=== PATIENT | female | born 1975 | race Caucasian/White ===

== ENCOUNTER 2023-12-21 12:42 | Outpatient (REF) | payer MEDICAID, OTHER, SELFPAY ==
--- NOTE | ~2023-12-21 | US_ITS ---
EXAMINATION: MM DIAGNOSTIC DIGITAL BREAST TOMOSYNTHESIS, BILATERAL US BREAST LIMITED, RIGHT MAMMOGRAPHY: CLINICAL INFORMATION: 48-year-old female, from [place], new baseline exam, complaining of palpable abnormality and pain right breast lateral upper and lower quadrants. Family history of breast cancer. Bilateral screening, COMPARISON: Mammography: [facility] in [place]. No current available. New baseline. TECHNIQUE: Digital breast tomosynthesis is performed in both the craniocaudal and mediolateral oblique views along with computer-aided detection (CAD). Synthesized 2D images are generated from the tomosynthesis. In addition, a full-field right 3-D mediolateral view, and full-field 3-D laterally exaggerated CC view were also obtained. FINDINGS: The breasts are heterogeneously dense, which may obscure small masses (ACR BI-RADS breast composition Category c). There are no suspicious masses, suspicious grouped calcifications, or areas of architectural distortion in either breast. No mammographic abnormality is detected in the lateral right breast upper quadrant or lower quadrant to correlate with the patient's palpable abnormality and breast pain. ULTRASOUND: CLINICAL INFORMATION: As above. COMPARISON: None TECHNIQUE: Targeted sonographic evaluation was performed using a high frequency linear transducer. Attention to the right lateral breast was given. Selected archived documentation. FINDINGS: RIGHT BREAST: There is heterogeneously dense breast tissue present. There is no mass, cystic abnormality, abnormal shadowing, or parenchymal distortion identified. No sonographic correlate to the patient's symptomatology is evident in the lateral right breast upper outer lower quadrant. US/US breast RT limited mamm only IMPRESSION: There are no findings suspicious for malignancy in either breast. There is no correlate mammographically or sonographically to the patient's complaint of lateral upper and lower quadrant pain and palpable concern. Recommend clinical management. Otherwise, recommend the patient resume routine annual screening. OVERALL ASSESSMENT: Mammography: BI-RADS 1 - Negative Ultrasound: BI-RADS 1 - Negative RECOMMENDATION: 1. Patient should be managed based on the clinical impression. 2. Otherwise, routine annual screening mammography. Results were provided to the patient at time of visit by the technologist. This patient's information was entered into a reminder system with a target due date for their next mammogram.
== END 2023-12-21 12:43 | disposition home or self-care (01) ==
LOC: HO.MAMMO 12:42
PROVIDERS: PCP Registered Nurse; Visit Provider Registered Nurse
DX: N63.13 Unspecified lump in the right breast, lower outer quadrant (principal)
CPT/HCPCS: 76642; 77062; 77066

== ENCOUNTER → 2023-12-21 13:30 | Outpatient (BNV) | payer SELFPAY | PROVIDERS: PCP Registered Nurse; Visit Provider Radiology Diagnostic Radiology | DX: N64.4 Mastodynia (principal); N63.10 Unspecified lump in the right breast, unspecified quadrant | CPT/HCPCS: 76642; 77062; 77066 ==

== ENCOUNTER 2024-01-07 12:08 | Outpatient (REF) | payer MEDICAID, OTHER, SELFPAY ==
[2024-01-07 13:11] LABS: MANUAL DIFF FLAG NO
[2024-01-07 13:18] LABS: Basophils Percent Auto 0.7 % (0-2); Eosinophils Absolute Auto 0.1 X10*3/uL (0.0-0.4); Eosinophils Percent Auto 0.9 % (0-4); Hematocrit 37.7 % (37.0-47.0); Hemoglobin 12.7 g/dl (12.0-16.0); Imm Gran Abs Auto 0.02 X10*3/uL (0.00-0.03); Imm Gran Pct Auto 0.3 % (0.0-0.4); Lymphocytes Absolute Auto 1.1 X10*3/uL (1.2-4.9); Lymphocytes Percent Auto 19.9 % (20-40); Mean Corpuscular HGB Conc 33.7 g/dl (31.0-35.0); Mean Corpuscular Hemoglobin 31.1 pg (27.0-33.0); Mean Corpuscular Volume 92.2 fL (80.0-98.0); Mean Platelet Volume 10.7 fL (9.4-12.3); Monocytes Absolute Auto 0.3 X10*3/uL (0.1-1.2); Monocytes Percent Auto 5.2 % (2-11); Neutrophils Absolute Auto 4.2 x10*3/uL (2.0-8.3); Platelet Count 245 X10*3/uL (160-400); Red Blood Count 4.09 X10*6/uL (4.20-5.50); Red Cell Distribution Width 12.4 % (11.0-16.0); White Blood Count 5.7 X10*3/uL (4.8-10.8)
[2024-01-07 13:39] LABS: Alanine Aminotransferase 27 U/L (0-31); Albumin Level 4.5 g/dL (3.5-5.0); Alkaline Phosphatase 71 U/L (39-117); Anion Gap 16 (12-20); Aspartate Amino Transferase 22 U/L (5-31); Bilirubin Total 0.5 mg/dL (0.0-1.0); Blood Urea Nitrogen 16 mg/dL (9-16); Calcium 10.1 mg/dL (8.4-10.2); Carbon Dioxide 23 mmol/L (22-29); Chloride 106 mmol/L (96-108); Cholesterol 270 mg/dL (<200); Estimated Glomerular Filt Rate > 60; Glucose Random 102 mg/dL (60-115); HDL Cholesterol 54 mg/dL (>40); LDL Cholesterol Calculated 190 mg/dL (<100); Potassium 4.4 mmol/L (3.3-5.1); Sodium 141 mmol/L (135-145); Triglycerides 130 mg/dL (<150)
[2024-01-08 07:51] LABS: HBS Num1 0.33 mIU/mL (0-7.99); HBc Num1 0.11 S/CO (0.00-0.79); HBsAGNum1 0.23 S/CO (0.00-0.99); HIV AB/AG Nonreactive (Nonreactive); HIV Num 1 0.05 S/CO (0.00-0.99); Hepatitis A Antibody IgM 0.71 Index (0-0.79); Hepatitis B Core Antibody Nonreactive (Nonreactive); Hepatitis B Surface Antigen Negative (Negative); ~HepC Num1 0.11 S/CO (0.00-0.79); ~Hepatitis A Antibody IgM Nonreactive (Nonreactive); ~Hepatitis B Surface Antibody NONREACTIVE (Nonreactive); ~Hepatitis C Antibody Nonreactive (Nonreactive)
[2024-01-09 20:03] LABS: RPR Rapid Plasma Reagin NON-REACTIVE (NON-REACTIVE)
== END 2024-01-07 12:09 | disposition home or self-care (01) ==
LOC: HO.HHCL 12:08
PROVIDERS: Visit Provider Registered Nurse
DX: Z00.00 Encounter for general adult medical examination without abnormal findings (principal)
CPT/HCPCS: 36415; 80053; 80061; 85025; 86592; 86704; 86706; 86709; 86803; 87340; 87389

== ENCOUNTER 2024-01-10 15:31 | Outpatient (REF) | payer MEDICAID, OTHER, SELFPAY ==
--- NOTE | ~2024-01-10 | US_ITS ---
EXAMINATION: US PELVIS CLINICAL INFORMATION: Right lower quadrant pain, postmenopausal. COMPARISON: None available. TECHNIQUE: Ultrasound of the pelvis is performed using both transabdominal and transvaginal transducers along with Doppler. Transvaginal imaging is performed due to inadequate visualization transabdominally. FINDINGS: The uterus measures 6.2 x 3.3 x 3.5 cm and is anteverted. Endometrium is echogenic with thickness of 6 mm. There is an anechoic area within the endometrium measuring approximately 7 x 2 mm. No significant free fluid. Bilateral ovaries are grossly unremarkable, although visualization is limited. Right ovary measures 3.6 x 3.2 x 1.9 cm, volume 11.4 mL. Left ovary measures 2.3 x 1.7 x 1.9 cm volume 3.9 mL and was seen only on transabdominal ultrasound images. Limited visualization due to bowel gas. US/US pelvic and transvaginal IMPRESSION: Endometrium is echogenic with thickness of 6 mm. There is an anechoic area within the endometrium measuring approximately 7 x 2 mm. Abnormal appearance of endometrium for postmenopausal patient. Gynecologic consultation recommended to determine further management including possible biopsy.
== END 2024-01-10 15:32 | disposition home or self-care (01) ==
LOC: HO.HMGCX 15:31
PROVIDERS: PCP Registered Nurse; Visit Provider Registered Nurse
DX: R10.2 Pelvic and perineal pain (principal)
CPT/HCPCS: 76830; 76856

== ENCOUNTER 2024-03-21 17:12 | Outpatient (REF) | payer MEDICAID, OTHER, SELFPAY ==
[2024-03-22 13:32] LABS: CT PCR NOT DETECTED (Not Detect.); NG PCR NOT DETECTED (Not Detect.)
[2024-03-26 08:53] LABS: HPV mRNA E6/E7 Not Detected (Not Detected)
== END 2024-03-21 17:13 | disposition home or self-care (01) ==
LOC: HO.HHCLNP 17:12
PROVIDERS: Visit Provider Registered Nurse
DX: Z12.4 Encounter for screening for malignant neoplasm of cervix (principal)
CPT/HCPCS: 36415; 87491; 87591; 87624; 88175

== ENCOUNTER 2024-06-23 14:36 | Outpatient (REF) | payer MEDICAID, OTHER, SELFPAY ==
[2024-06-23 15:59] LABS: MANUAL DIFF FLAG NO
[2024-06-23 16:04] LABS: Basophils Percent Auto 0.4 % (0-2); Eosinophils Percent Auto 0.8 % (0-4); Hematocrit 36.8 % (37.0-47.0); Hemoglobin 12.5 g/dl (12.0-16.0); Imm Gran Abs Auto 0.01 X10*3/uL (0.00-0.03); Imm Gran Pct Auto 0.2 % (0.0-0.4); Lymphocytes Absolute Auto 1.3 X10*3/uL (1.2-4.9); Lymphocytes Percent Auto 24.9 % (20-40); Mean Corpuscular Hemoglobin 30.5 pg (27.0-33.0); Mean Corpuscular Volume 89.8 fL (80.0-98.0); Mean Platelet Volume 10.5 fL (9.4-12.3); Monocytes Absolute Auto 0.3 X10*3/uL (0.1-1.2); Monocytes Percent Auto 5.8 % (2-11); Neutrophils Absolute Auto 3.5 x10*3/uL (2.0-8.3); Neutrophils Percent Auto 67.9 % (45-73); Platelet Count 254 X10*3/uL (160-400); Red Cell Distribution Width 12.3 % (11.0-16.0); White Blood Count 5.2 X10*3/uL (4.8-10.8)
[2024-06-23 17:01] LABS: Ferritin 100 ng/mL (10-250); TSH reflex Free T4 3.15 uIU/mL (0.32-4.0)
== END 2024-06-23 14:37 | disposition home or self-care (01) ==
LOC: HO.HHCL 14:36
PROVIDERS: Visit Provider Registered Nurse
DX: R53.83 Other fatigue (principal)
CPT/HCPCS: 36415; 82728; 84443; 85025

== ENCOUNTER 2025-01-06 10:33 | Outpatient (REF) | payer MEDICAID, OTHER, SELFPAY ==
--- OUTSIDE RECORDS SUMMARY | 2025-01-06 12:21 | XMS_ITS | Patient Health Record ---
Author Organization [facility] Address [address], [place] [id number] Care Team Providers Care Block Tester Name Role Phone No, PCP Primary Care Provider Unavailabl e Allergies No Known Allergies Reason For Referral No Information Plan Of Treatment No Information Insurance Providers Payer Name Payer Address Payer Phone Subscriber Number Group Number Insured Name Patient Relationship to Insured Coverage Start Date Coverage End Date [place] [address] [place], [place] [id number] [phone] [id number] Servando Torres Self - patient is the insured 9 [place] [employer] [facility] [address] [place] [address] [id number] Servando Torres Self - patient is the insured 9 Health [employer] [facility] [address] [place] [address] [id number] Servando Torres Self - patient is the insured 9 Medical (General) History Medical History History ICD Code Healthy
== END 2025-01-06 10:34 | disposition home or self-care (01) ==
LOC: HO.MAMMO 10:33
PROVIDERS: Visit Provider Registered Nurse
DX: Z12.31 Encounter for screening mammogram for malignant neoplasm of breast (principal)
CPT/HCPCS: 77063; 77067

== ENCOUNTER → 2025-01-06 10:45 | Outpatient (BNV) | payer SELFPAY | PROVIDERS: Visit Provider Internal Medicine | DX: Z12.31 Encounter for screening mammogram for malignant neoplasm of breast (principal) | CPT/HCPCS: 77063; 77067 ==

== ENCOUNTER 2025-05-25 11:19 | Outpatient (REF) | payer MEDICAID, OTHER, SELFPAY ==
--- NOTE | ~2025-05-25 | XR_ITS ---
EXAMINATION: XR LUMBOSACRAL SPINE WITH OBLIQUES CLINICAL INFORMATION: Acute on chronic sharp low back pain COMPARISON: None available. TECHNIQUE: AP oblique and lateral views FINDINGS: No acute cortical disruption or gross malalignment. No lytic or blastic lesions. Small marginal osteophyte formation at multiple levels from L2-3 to L4-5. Vascular complications, aorta. XR/XR lumbar spine 4V min IMPRESSION: Mild multilevel spondylosis. Electronically signed by: Kerwin Osborne MD 05/25/2025 12:53 PM EDT
--- OUTSIDE RECORDS SUMMARY | 2025-05-25 10:00 | XMS_ITS | Encounter Summary ---
Author Organization [employer] Address [address] [place] [address] [address] [place] [address] Care Team Providers Care Condenser Tester Name Role Phone Samantha Owusu Primary Care Provider [phone] Reason for Referral * Imaging (STAT) - Authorized Specialty Diagnoses / Procedures Referred By Contac t Referred To Contact Radiology Diagnoses Post-menopausal bleeding Procedures US Pelvis Transvaginal Samantha Owusu FNP [address] [place] [address] Phone: tel: fax: [address] Phone: tel: fax: Referral ID Status Reason Start Date Expiration Date V isits Requested Visits Authorized [id number] Authorized 05/25/2025 05/25/2026 1 1 * Imaging (STAT) - Authorized Specialty Diagnoses / Procedures Referred By Contac t Referred To Contact Radiology Diagnoses Post-menopausal bleeding Procedures Us Pelvis complete Samantha Owusu FNP [address] [place] [address] Phone: tel: fax: [address] Phone: tel: fax: Referral ID Status Reason Start Date Expiration Date V isits Requested Visits Authorized [id number] Authorized 05/25/2025 05/25/2026 1 1 Reason for Visit * Reason Comments Annual Exam Encounter Details Date Type Department Care Team (Chris st Contact Info) Description 05/25/2025 10:00 AM EDT Office Visit [facility] [address] [place] [address] Samantha Owusu FNP [address] [place] [address] Healthcare maintenance (Primary Dx); Post-menopausal bleeding; Elevated blood pressure reading in office without diagnosis of hypertension; Chronic bilateral low back pain with right-sided sciatica; Dietary counseling; Exercise counseling Social History Tobacco Use Types Packs/Day Years Used Date Smoking Tobacco: Never Passive Smoke Exposure: Never Smokeless Tobacco: Never Tobacco Cessation:Counseling Given: Not Answered Alcohol Use Standard Drinks/Week Comments Never 0 (1 standard drink = 0.6 oz pur e alcohol) Depression Answer Date Recorded Patient Health Questionnaire-9 Score 0 05/25/2025 Patient Health Questionnaire-9 Score 0 05/25/2025 Last PHQ-9: Questionnaire Data Not on file 1 Housing Stability Answer Date Recorded What is your housing situation today? I have tarik high 05/25/[address] you li ve. Do you have problems with any of the following? None of the above 05/25/2025 Food Insecurity Answer Date Recorded Within the past 12 months, y ou worried that your food would run out before you got money to buy more: Never True 05/25/2025 Within the past 12 months,th e food you bought just didn't last and you didn't have enough money to get more: Never True Transportation Answer Date Recorded In the past 12 months, has l ack of transportation kept you from medical appts, meetings, work or from getting things needed for daily living? No 05/25/2025 Utilities Answer Date Recorded In the past 12 months, has t he electric, gas, oil or water company threatened to shut off services in your home? No 05/25/2025 Depression Answer Date Recorded Patient Health Questionnaire-2 Score 0 05/25/2025 Internet Access Answer Date Recorded Internet Access Q1 Yes 05/25/2025 Internet Access Q2 Not on file 05/25/2025 Comments Unknown Sex and Gender Information Value Date Recorded Sex Assigned at Female 05/29/2022 10:39 AM EDT Legal Sex Female 10:39 AM EDT Gender Identity Female 05/29/2022 10:39 AM EDT Sexual Orientation Don't know 05/29/2022 10 :39 AM EDT documented as of this encounter Last Filed Vital Signs Vital Sign Reading Time Taken Comments Blood Pressure 130/100 05/25/2025 11:01 AM EDT Pulse 90 05/25/2025 10:17 AM EDT Temperature 36.2 C (97.1 F) 05/25/2025 10:17 AM EDT Respiratory Rate 18 05/25/2025 10:17 AM EDT Oxygen Saturation - - Inhaled Oxygen Concentration - - Weight 61.9 kg (136 lb 6.4 oz) 05/25/2025 10:17 AM EDT Height 154.9 cm (5' 1 ) 05/25/2025 10:17 AM EDT Body Mass Index 25.77 05/25/2025 10:17 AM EDT documented in this encounter Functional Status * Over the past 2 weeks, how often have you been bothered by any of the following problems? Question Answer Date of Assessment Author Little interest or pleasure in doing things Not at all 05/25/2025 11:16 AM EDT Vy Petty MA Feeling down, depressed, or hopeless Not at all 05/25/2025 11:16 AM EDT Vy Valentin MA Patient Health Questionnaire-2 Score 0 05/25/2025 11:16 AM EDT Vy Reilly MA * Question Answer Date of Assessment Author Trouble falling or staying asleep, or sleeping too much Not at all 05/25/2025 11:16 AM EDT Vy Ramirez MA Feeling tired or having little energy Not at all 05/25/2025 11:16 AM EDT Vy Valentin MA Poor appetite or overeating Not at all 05/25/2025 11 :16 AM EDT Vy Valentin MA Feeling bad about yourself - or that you are a failure or have let yourself or your family down Not at all 05/25/2025 11:16 AM Vy Lei MA Trouble concentrating on things, such as reading the newspaper or watching television Not at all 05/25/2025 11:16 AM Vy Lei MA Moving or speaking so slowly that other people could have noticed? Or the opposite - being so fidgety or restless that you have been moving around a lot more than usual. Not at all 05/25/2025 11:16 AM EDT Vy Poe MA Thoughts that you would be better off or hurting yourself in some way Not at all 05/25/2025 11:16 AM Vy Lei MA Patient Health Questionnaire-9 Score 0 05/25/2025 11:16 AM Vy Barkley MA * Over the last 2 weeks, how often have you been bothered by any of the following problems? Question Answer Date of Assessment Author Feeling nervous, anxious, or on edge 0 05/25/2025 11:16 AM Vy Lei MA Not being able to stop or control worrying 0 05/25/2025 11:16 AM Vy Lei MA Worrying too much about different things 0 05/25/2025 11:16 AM Vy Lei MA Trouble relaxing 0 05/25/2025 11:16 AM Vy Lei MA Being so restless that it is hard to sit still 0 05/25/2025 11:16 AM Vy Lei MA Becoming easily annoyed or irritable 0 05/25/2025 11:16 AM Vy Lei MA Feeling afraid as if something awful might happen 0 05/25/2025 11:16 AM Vy Pritchard MA CECELIA-7 Total Score 0 05/25/2025 11:16 AM EDT Vy Valentin MA documented as of this encounter Progress Notes * [facility], BILLING ANALYST - 05/25/2025 10:00 AM EDT SUBJECTIVE: Servando Bradley is a 49 y.o. year old female who presents for routine physical exam.Denies recent illness, injury, or hospitalization. [employer] Aide: [id number] Acute Concerns: Elevated Blood Pressure-->Pt denies CP/SOB/headache/blurred vision. + Family history of hypertension. Chronic low back pain -- reports sharp, stabbing pain, bilateral low back pain x several years. Radiating down back of right legt. No dysuria, no fever, chills. Worse with prolonged standing and extension. No history of trauma. Needs referral for eye care--> Interval History OBGYN-Referred to [facility] for pelvic pain in setting of abnormal pelvic ultrasound. Has not scheduled appointment. --has been unable to receive a call back--> reports 1 episode of spotting within thelast 3 months. Endometrium is echogenic with thickness of 6 mm. There is an anechoic area within the endometriummeasuring approximately 7 x 2 mm. Abnormal appearance of endometrium for postmenopausal patient. Gynecologic consultation recommended to determine further management including possible biopsy. Social History Social History Narrative Current living environment: Lives with partner/kids Children: 2--> adult Employment/Education: Cleaning Tobacco Use: None Alcohol Use: None Marijuana Use: None Other drug use: None Reproductive Health: Sexually Active: Yes Partners are: AMAB LMP: Menopause Planning a in the next 12 months: No Problem List[1] Surgical History[2] Family History[3] Review of Systems OBJECTIVE: There were no vitals filed for this visit. Physical Exam ASSESSMENT/PLAN PMB - STAT repeat pelvic ultrasound - GASKET WINDER options limited due to insurance-->will task RN team to call office directly - Emphasized importance of follow through Elevated BP Home blood pressure cuff sent to pharmacy. Record blood pressure 1-2x/day at varying times of day Contact health center if three readings are >140/90. Seek immediate medical care if reading is greater than or equal to 180/120 or if experiencing chestpain, blurred vision or severe headache Follow up with nurse blood pressure visit in 2 weeks-->if home readings consistently >130/80 please schedule patient for televisit with me to discuss starting pharmacologic treatment. Thank you! Patient verbalizes understanding and agrees to plan. Chronic LBP - Sx likely musculoskeletal. Non-focal, normal motor exam without neurological deficits. -Recommend NSAID and tylenol PRN - Baseline xrays given age - Accepts physical therapy referral; pending insurance -Lifting precautions and stretching reviewed. -ER precaution discussed. -Contact HC if no sx improvement with conservative tx PHYSICAL - Cardiopulmonary exam WNL - Encouraged regular aerobic exercise with initial goal of 30 minute walk 3x/week gradually increasing to 150 min/week of moderate intensity exercise - Encouraged balanced diet with a variety of fruits, vegetables, and lean meats. Recommended to decrease soda and sugary beverage consumption. Routine Health Maintenance Optometry: Referral to eye care placed Dental: Established with dental provider. Up to date on routine care Adult IZ: Declines Immunization History Administered Date(s) Administered Influenza, seasonal, injectable, preservative free 06/23/2024 Pfizer Covid-19 Vaccine 12+ 11/27/2020, 12/18/2020 Tdap 01/07/2024 Mental health screening with validated assessment tool : Negative Screenings Breast cancer screenin12/2024 negative Cervical cancer screenin02/2024-NIL HPV neg Colorectal cancer screening: Colog2023 negative Bone mineral density: Routine age 63. Lung CA: N/A Mental health screen: negative Diagnosis Plan 1. Healthcare maintenance 2. Post-menopausal bleeding Us Pelvis complete US Pelvis Transvaginal Us Pelvis complete US Pelvis Transvaginal 3. Elevated blood pressure reading in office without diagnosis of hypertension Comprehensive Metabolic Panel Albumin, Random Urine W/Creatinine Blood Pressure kit Comprehensive Metabolic Panel Albumin, Random Urine W/Creatinine Lipid Panel, Standard Lipid Panel, Standard 4. Chronic bilateral low back pain with right-sided sciatica XR Lumbar Spine Complete 4+ Views XR Lumbar Spine Complete 4+ Views 5. Dietary counseling 6. Exercise counseling Follow Up: 2 weeks RN BP check; Medications Ordered Prior to Encounter[4] [1] There is no problem list on file for this patient. [2] No past surgical history on file. [3] Family History Problem Relation Name Age of Onset Breast cancer Mother Stroke Mother Diabetes type II Mother [4] No current outpatient medications on file prior to visit. No current facility-administered medications on file prior to visit. documented in this encounter Miscellaneous Notes * Patient Education Note - Samantha PritchettMAVIS laurent - 05/25/2025 3:01 PM EDT Images from the original note were not included. Patient Education Table of Contents Exerc?cios para as khalida: fortalecimento (Back Exercises: Strengthening) To view videos and all your education online visit, [email or web address] or scan this QR code with your smartphone. Access to this content will in one year. Exerc?cios para as khalida: fortalecimento Back Exercises: Strengthening Introdu???o Os exerc?cios para as khalida podem ajudar voc?? a melhorar ap?s soren les?o ou fortalecer os m?sculosfracos. Esses exerc?cios ajudam a fortalecer o tronco (torso) e as khalida. Eles tamb?m ajudam a manter a shayna?o lombar flex?naeem. A pr?lotus desses exerc?cios pode ajudar a prevenir ou diminuir a cathy na shayna?olombar. Jodi sinta cathy connor khalida, tente fazer esses exerc?cios 2 a 3 vezes por marco ou de acordo com as instru???es do seu m?dico. ?? medida que voc?? melhorar, fa?a os exerc?cios soren vez por marco. Repita os exerc?cios com mais frequ?ncia, conforme indicado pelo seu m?dico. Para evitar que a cathy connor khalida volte, fa?a os exerc?cios soren vez por marco ou conforme indicado pelo seu m?dico. Pare se sentir cathy ou se a cathy piorar. N?o comece os exerc?cios rashard a aprova???o do seu m?dico. Exerc?cios [place]???o do joelho Repita essas etapas 3 a 5 vezes com cada leonie: 1. Deite-se de khalida em soren cama firme ou no ch?o com as pernas esticadas. Leve um joelho ao peito. Segure o joelho ou a coxa com as duas m?os e mantenha-o dinorah posi???o. Puxe o joelho at?? sentir um alongamento suave da shayna?o lombar e nos gl?teos. Permane?a dinorah posi???o por 10 a 30 segundos. Lentamente, solte a leonie e endireite-a. Inclina???o da pelve Repita esses brenda 5 a 10 vezes: 1. Deite-se de khalida em soren cama firme ou no ch?o com as pernas esticadas. Dobre os joelhos de modo que eles apontem para o tashi. Seus p?s devem estar apoiados no ch?o. Contraia os m?sculos da parte inferior da rosendo (abd?men) para pressionar a parte inferior jung khalida contra o ch?o. Isso far?? com que o c?ccix wagner para o tashi em vez de apontar para os p?s ou para o ch?o. Permane?a dinorah posi???o por 5 a 10 segundos enquanto contrai suavemente os m?sculos e respire de modo meghana. Alongamento do anjelica e da peter Execute estas etapas at?? que a shayna?o lombar se curve com mais facilidade: 1. Ajoelhe-se em soren cama firme ou no ch?o. Mantenha as m?os abaixo dos ombros e os joelhos abaixo dos quadris. Voc?? pode colocar soren almofada sob os joelhos. Solte a cabe?a e deixe-a pendurada na dire???o do seu peito. Aperte (contraia) os m?sculos de sua rosendo. Wagner o c?ccix para o ch?o, de maneira que a shayna?o lombar fique arredondada, jered as khalida de um anjelica. Permane?a dinorah posi???o por 5 segundos. Levante lentamente a cabe?a. Deixe os m?sculos do abd?men relaxarem. Wagner o c?ccix na dire???o doteto, de maneira que a shayna?o lombar forme um arco, jered as khalida de soren peter. Permane?a dinorah posi???o por 5 segundos. Flex?es de bra?o Execute estas etapas de 5 a 10 vezes seguidas: 1. Deite-se com o abd?men voltado para baixo (de bru?os) em soren cama firme ou no ch?o. Coloque as m?os perto da cabe?a, aproximadamente na largura dos ombros. Mantendo as khalida t?o relaxadas quanto poss?naeem e os quadris no ch?o, estique os bra?os de maneiraa erguer a parte superior do corpo e os ombros. N?o use os m?sculos jung khalida. Voc?? pode mudar o local onde coloca as m?os para se sentir mais confort?naeem. Permane?a dinorah posi???o por 5 segundos. Mantenha suas khalida relaxadas. Volte lentamente a deitar-se no ch?o. Stella Execute estas etapas 10 vezes seguidas: 1. Deite-se de khalida em soren cama firme ou sobre o ch?o. Dobre os joelhos de modo que eles apontem para o tashi. Seus p?s devem estar apoiados no ch?o. Seus bra?os devem estar estendidos connor laterais, paralelos ao seu corpo. Contraia os gl?teos e levante as n?degas do ch?o at?? que sua cintura esteja quase na altura dos joelhos. Se n?o sentir os m?sculos trabalhando connor n?degas e na parte posterior jung coxas, afaste os p?s de 1 a 2 polegadas (2,5 a 5 cm) dos gl?teos. Permane?a dinorah posi???o por 3 a 5 segundos. Abaixe lentamente as n?degas at?? o ch?o e deixe os gl?teos relaxarem. Se esse exerc?twill cutter for f?cil demais, tente jonah?-lo com os bra?os cruzados sobre o peito. Flex?es abdominais Execute estas etapas de 5 a 10 vezes seguidas: 1. Deite-se de khalida em soren cama firme ou no ch?o com as pernas esticadas. Dobre os joelhos de modo que eles apontem para o tashi. Seus p?s devem estar apoiados no ch?o. Cruze os bra?os sobre o peito. Incline o queixo um pouco em dire???o ao peito, mas n?o dobre o pesco?o. Contraia os m?sculos da rosendo e, lentamente, levante o peito apenas o suficiente para levantar asomoplatas um pouco do ch?o. Evite elevar o corpo mais alto do que isso, pois isso pode causar muitoestresse na shayna?o lombar. Abaixe lentamente o peito e a cabe?a at?? o ch?o. [place]???o jung khalida Execute estas etapas de 5 a 10 vezes seguidas: 1. Deite-se de rosendo para baixo (de bru?os) com os bra?os ao lado do corpo e apoie a dhaval no ch?o. Contraia os m?sculos jung pernas e dos gl?teos. Erga lentamente o peito em rela???o ao ch?o, mantendo os quadris no ch?o. Mantenha a parte de tr?s da cabe?a alinhada com a curva jung khalida. Olhe para o ch?o enquanto jonah isso. Permane?a dinorah posi???o por 3 a 5 segundos. Abaixe lentamente o peito e o rosto at?? o ch?o. Estas informa???es n?o se destinam a substituir as recomenda???es de seu m?dico. N?o deixe de discutir quaisquer d?vidas com seu m?dico. Document Released: 2017-11-06 Document Updated: 2024-12-17 Document Reviewed: 2024-12-17 Elsevier Patient Education ? 2024 CohesiveFTRafia documented in this encounter Plan of Treatment Upcoming Encounters Date Type Department Care Team (Late st Contact Info) Description 06/01/2025 11:30 AM EST Clinical Support [facility] [address] [place] [id number] Scheduled Orders Name Type Priority Associated Diagnoses Orde r Schedule Us Pelvis complete Imaging STAT Post-menopausal bleeding Expected: 05/25/2025, Expires: 05/25/2026 US Pelvis Transvaginal Imaging STAT Post-menopausal bleeding Expected: 05/25/2025, Expires: 05/25/2026 documented as of this encounter Procedures Procedure Name Priority Date/Time Associated Diagnosis Comments XR LUMBAR SPINE COMPLETE 4+ VIEWS Routine 05/25/2025 12:07 PM EDT Chronic bilateral low back pain with right-sided sciatica LIPID PANEL, STANDARD Routine 05/25/2025 11:26 AM EDT Elevated blood pressure reading in office without diagnosis of hypertension COMPREHENSIVE METABOLIC PANEL Routine 05/25/2025 11:26 AM EDT Elevated blood pressure reading in office without diagnosis of hypertension ALBUMIN, RANDOM URINE W/CREATININE Routine 05/25/2025 11:25 AM EDT Elevated blood pressure reading in office without diagnosis of hypertension documented in this encounter Results * XR Lumbar Spine Complete 4+ Views (05/25/2025 12:07 PM EDT) Anatomical Region Laterality Modality Spine, L-spine Radiographic Analia ging 05/25/2025 12:0 7 PM EDT Narrative 05/25/2025 12:56 PM EDT [address] [address] XRay Report Signed Patient: Servando Henriquez MR#: [id number] : 1975 Acct:[id number] Age/Sex: 49 / F ADM Date: 05/25/25 Loc: [facility] Attending Dr: Samantha PEGUEROP Ordering Physician: Samantha Owusu Date of Service: 05/25/25 Procedure(s): XR lumbar spine 4V min Accession Number(s): [id number] cc: Samantha Owusu [facility] Reason for Exam: Acute on chronic sharp low back pain EXAMINATION: XR LUMBOSACRAL SPINE WITH OBLIQUES CLINICAL INFORMATION: Acute on chronic sharp low back pain COMPARISON: None available. TECHNIQUE: AP oblique and lateral views FINDINGS: No acute cortical disruption or gross malalignment. No lytic or blastic lesions. Small marginal osteophyte formation at multiple levels from L2-3 to L4-5. Vascular complications, aorta. XR/XR lumbar spine 4V min IMPRESSION: Mild multilevel spondylosis. Electronically signed by: Kerwin Osborne MD 05/25/2025 12:53 PM EDT RP Dictated By: Kerwin Benitez MD Signed By: <Electronically signed by Kerwin Crowley MD in OV> 05/25/25 1253 DD/ 1207 TD/TT: 05/25/25 1210 [employer]: Procedure Note Donotuseinterpreter, Image - 05/25/[address] [address] XRay Report Signed Patient: Servando Henriquez MR#: [id number] : 1975Acct:[id number] Age/Sex: 49 / FADM Date: 05/25/25 Loc: [facility] Attending Dr: Samantha PEGUEROP Ordering Physician: Samantha Owusu Date of Service: 05/25/25 Procedure(s): XR lumbar spine 4V min Accession Number(s): [id number] [facility] Reason for Exam: Acute on chronic sharp low back pain EXAMINATION: XR LUMBOSACRAL SPINE WITH OBLIQUES CLINICAL INFORMATION: Acute on chronic sharp low back pain COMPARISON: None available. TECHNIQUE: AP oblique and lateral views FINDINGS: No acute cortical disruption or gross malalignment. No lytic or blastic lesions. Small marginal osteophyte formation at multiple levels from L2-3 to L4-5. Vascular complications, aorta. XR/XR lumbar spine 4V min IMPRESSION: Mild multilevel spondylosis. Electronically signed by: Kerwin Osborne MD 05/25/2025 12:53 PM EDT RP Dictated By: Kerwin Benitez MD Signed By: <Electronically signed by Kerwin Crowley MDin OV> 05/25/25 1253 DD/ 1207 TD/TT: 05/25/25 1210 [employer]: [facility] IMG XR PROCEDURES Edited Resu lt - Final * (ABNORMAL) Lipid Panel, Standard (05/25/2025 11:26 AM EDT) Triglycerides 92 <150 mg/dL [facility] Comment:Desirable Triglyceri de: less than 150 mg/dLBorderline High Triglyceride 150-199 mg/dLHigh Triglyceride: 200-499 mg/dLVery High Triglyceride: greater than or equal to 5OO mg/dL Cholesterol 237(H) <200 mg/dL [facility] Comment:Desirable Cholestero l: less than 200 mg/dLBorderline High Cholesterol: 200-239 mg/dLHigh Cholesterol: greater than 239 mg/dL LDL Cholesterol Calculated 166(H) <100 mg/dL [facility] Comment:Desirable LDL: less than 100 mg/dLNear Optimal/Above Optimal LDL: 110- 129 mg/dLBorderline High LDL: 130-159 mg/dLHigh LDL: 160-189 mg/dLVery High LDL: greater than or equal to 190 mg/dL HDL Cholesterol 53 >40 mg/dL [facility] Comment:Desirable HDL: great er than 40 mg/dL Note: This HDL assay may give artificially low results in patients with liver disease. Blood Venous blood specimen / Unknown 05/25/2025 11:26 AM EDT 05/25/2025 1:19 PM EDT [facility] LAB BLOOD ORDERABLES Final Re sult [facility] [address] [place] [phone] * (ABNORMAL) Comprehensive Metabolic Panel (05/25/2025 11:26 AM EDT) Sodium 140 135 - 145 mmol/L [facility] Potassium 4.1 3.3 - 5.1 mmol/L [facility] Chloride 110(H) 96 - 108 mmol/L [facility] Carbon Dioxide 26 22 - 29 mmol/L [facility] Anion Gap 8(L) 12 - 20 [facility] Urea Nitrogen (BUN) 14 9 - 16 mg/dL [facility] Creatinine, Serum 0.59 0.5 - 1.4 mg/dL [facility] Estimated Glomerular Filt Rate >60 [facility] Comment:Chronic Kidney Disea se: Estimated GFR < 60 mL/min/[id number] Kidney Disease: Estimated GFR < 15 mL/min/1.73m2 Glucose 101 60 - 115 mg/dL [facility] Calcium 9.2 8.4 - 10.2 mg/dL [facility] Bilirubin, Total 0.4 0.0 - 1.0 mg/dL [facility] Aspartate Amino Transferase 23 5 - 31 U/L [facility] Alanine Aminotransferase 25 0 - 31 U/L [facility] Total Protein 7.8 6.5 - 8.0 g/dL [facility] Albumin Level 4.6 3.5 - 5.0 g/dL [facility] Alkaline Phosphatase 64 39 - 117 U/L [facility] Blood Venous blood specimen / Unknown 05/25/2025 11:26 AM EDT 05/25/2025 1:19 PM EDT [facility] LAB BLOOD ORDERABLES Final Re sult Performing Organization Address City/[facility]/ZIP Co de Phone Number [facility] [address] [place] [phone] * Albumin, Random Urine W/Creatinine (05/25/2025 11:25 AM EDT) Creatinine, Urine 89.24 mg/dL [facility] Microalbumin Urine 8.0 mg/L [facility] Microalbum Creatinine Ratio Ur 8.9 <30 ug/mg cr [facility] Comment:Albumin/Creatinine R atio Reference Ranges: Normal: < 30 ug/mg creatinine Microalbuminuria: 30 - 300 ug/mg creatinineClinical Albuminuria: > 300 ug/mg creatinine Urine 05/25/2025 11:2 5 AM EDT 05/25/2025 1:00 PM EDT [facility] URINE ORDERABLES Final Re sult Performing Organization Address City/[facility]/ZIP Co de Phone Number [facility] [address] [place] [phone] [phone] documented in this encounter Visit Diagnoses Diagnosis Healthcare maintenance- Primary Post-menopausal bleeding Postmenopausal bleeding Elevated blood pressure reading in office without diagnosis of hypertension Chronic bilateral low back pain with right-sided sciatica Dietary counseling Dietary surveillance and counseling Exercise counseling documented in this encounter Additional Health Concerns Assessment Noted Time PHQ-9 Depression Total Score: 0 05/25/20 11:16 AM EDT documented as of this encounter Care Teams Condenser Tester Relationship Specialty Start Date End Date Samantha OwusuMAVIS [address] [place] [id number] PCP - General Family Medicine 12/14/23 documented as of this encounter
[2025-05-25 13:52] LABS: Alanine Aminotransferase 25 U/L (0-31); Albumin Level 4.6 g/dL (3.5-5.0); Alkaline Phosphatase 64 U/L (39-117); Anion Gap 8 (12-20); Aspartate Amino Transferase 23 U/L (5-31); Blood Urea Nitrogen 14 mg/dL (9-16); Calcium 9.2 mg/dL (8.4-10.2); Carbon Dioxide 26 mmol/L (22-29); Chloride 110 mmol/L (96-108); Cholesterol 237 mg/dL (<200); Estimated Glomerular Filt Rate > 60; HDL Cholesterol 53 mg/dL (>40); Potassium 4.1 mmol/L (3.3-5.1); Sodium 140 mmol/L (135-145); Total Protein 7.8 g/dL (6.5-8.0); Triglycerides 92 mg/dL (<150)
[2025-05-25 13:55] LABS: Microalbum/Creatinine Ratio Ur 8.9 ug/mg cr (<30)
--- OUTSIDE RECORDS SUMMARY | 2025-05-25 14:29 | XMS_ITS | Encounter Summary ---
Author Organization [employer] Address [address] [place] [address] [address] [place] [address] Care Team Providers Care Double Cut Off Saw Operator Name Role Phone Samantha Owusu Primary Care Provider [phone] Reason for Referral * Consultation (STAT) - Pending Review Specialty Diagnoses / Procedures Referred By Jose Alfredo t Referred To Contact Obstetrics and Gynecology Diagnoses Post-menopausal bleeding Abnormal pelvic ultrasound Samantha Owusu FNP [address] [place] [address] Phone: tel: fax: Referral ID Status Reason Start Date Expiration Date Visits Requested Visits Authorized [id number] Pending Review Specialty Services Required 05/25/2026 1 1 Encounter Details Date Type Department Care Team (Late st Contact Info) Description 05/25/2025 Orders Only [facility] [address] [place], [place] [phone] Samantha Owusu FNP [address], [place] [phone] Post-menopausal bleeding (Primary Dx); Abnormal pelvic ultrasound Social History Tobacco Use Types Packs/Day Years Used Date Smoking Tobacco: Never Passive Smoke Exposure: Never Smokeless Tobacco: Never Alcohol Use Standard Drinks/Week Comments Never 0 [...] AM EDT documented as of this encounter Functional Status * Over the [...] energy Not at all 05/25/2025 11:16 AM Vy Lei MA Poor appetite or overeating Not at all 05/25/2025 11 :16 AM Vy Lei MA Feeling bad about yourself - or [...] annoyed or irritable 0 05/25/2025 11:16 AM EDT Vy Valentin MA Feeling afraid as if something awful might happen 0 05/25/2025 11:16 AM EDT Vy Ramirez MA CECELIA-7 Total Score 0 05/25/2025 11:16 AM EDT Vy Valentin [place] documented as of this encounter Plan of Treatment Upcoming Encounters Date Type Department Care Team (Late st Contact Info) Description 06/01/2025 11:30 AM EST Clinical Support [facility] [address] [facility] [place] [address] Scheduled Referrals Name Type Priority Associated Diagnoses Order Schedule Referral to Obstetrics / Gynecology Outpatient Referral STAT Post-menopausal bleeding Abnormal pelvic ultrasound Expected: 05/25/2025 (Approximate), Expires: 05/25/2026 documented as of this encounter Visit Diagnoses Diagnosis Post-menopausal bleeding- Primary Postmenopausal bleeding Abnormal pelvic ultrasound documented in this encounter Additional Health Concerns Assessment Noted Time PHQ-9 Depression Total Score: 0 05/25/20 25 11:16 AM EDT documented as of this encounter Care Teams Double Cut Off Saw Operator Relationship Specialty Start Date End Date Samantha Owusu FNP [address] [facility] [place] [address] PCP - General Family Medicine 12/14/23 documented as of this encounter
--- OUTSIDE RECORDS SUMMARY | 2025-05-25 14:29 | XMS_ITS | Clinical Summary ---
Author Organization [employer] Address [address] [place] [address] [address] [place] [address] Care Team Providers Care Energy Scheduler Name Role Phone Samantha Owusu Primary Care Provider [phone] Allergies No known active allergies Medications Blood Pressure kitIndications:El evated blood pressure reading in office without diagnosis of hypertension Use as directed 1 kit Active Active Problems No known active problems Encounters Date Type Department Care Team Description 05/25/2025 10:00 AM EDT Office Visit [facility] [address] [place] [phone] Samantha Owusu FNP Healthcare maintenance (Primary Dx); Post-menopausal bleeding; Elevated blood pressure reading in office without diagnosis of hypertension; Chronic bilateral low back pain with right-sided sciatica; Dietary counseling; Exercise counseling 05/25/2025 Orders Only [facility] [address] [place] [phone] Samantha Owusu FNP Post-menopausal bleeding (Primary Dx); Abnormal pelvic ultrasound 05/25/2025 Travel 05/22/2025 Telephone [facility] [address] [place] [phone] Samantha Owusu FNP chart prep 05/18/2025 Patient Outreach [facility] [address] [place] [address] Samantha Owusu FNP Pre-visit Planning (SDOH unable to reach LVM) 05/18/2025 Patient Outreach [facility] [address] [place] [address] [facility] 03/04/2025 Telephone [facility] [address] [place] [address] [facility] oct recall from Last 3 Months Immunizations Immunization Administration Dates Next Due Influenza, seasonal, injectable, preservative fr ee 06/23/2024 Tdap 01/07/2024 Family History Medical History Relation Name Comments Breast cancer Mother Diabetes type II Mother Stroke Mother Relation Name Status Comments Mother Social History Tobacco Use Types Packs/Day Years [...] Don't know 05/29/2022 10 :39 AM EDT Last Filed Vital Signs Vital Sign Reading Time Taken Comments Blood Pressure 130/100 05/25/2025 11:01 AM EDT Pulse 90 05/25/2025 10:17 AM EDT Temperature 36.2 C (97.1 F) 05/25/2025 10:17 AM EDT Respiratory Rate 18 05/25/2025 10:17 AM EDT Oxygen Saturation 99% 06/23/2024 12:57 PM EST Inhaled Oxygen Concentration - - Weight 61.9 kg (136 lb 6.4 oz) 05/25/2025 10:17 AM EDT Height 154.9 cm (5' 1 ) 05/25/2025 10:17 AM EDT Body Mass Index 25.77 05/25/2025 10:17 AM EDT Plan of Treatment Upcoming Encounters Date Type Department Care Team (Late st Contact Info) Description 06/01/2025 11:30 AM EST Clinical Support [address] [address] Health Maintenance Due Date Last Done Comments CT Colonography 1973 Colonoscopy 1973 FIT 1973 Sigmoidoscopy 1973 Family Planning (PISQ) 1988 Hepatitis B Vaccines (1 of 3 - 19+ 3-dose series) 1992 Pneumococcal Vaccine: 50+ Years (1 of 1 - PCV) 11/04/2023 Zoster Vaccines (1 of 2) 11/04/2023 FOBT 02/04/2025 02/05/2024 COVID-19 Vaccine (3 - 2024-2 6 season) 2025 12/18/2020, 11/27/2020 Influenza Vaccine (#1) 2025 , 05/07/2020 Alcohol/Substance Use Screening 05/25/2026 05/25/2025 Depression Screening 05/25/2026 05/25/2025, 05/25/2025 Disability Screening 05/25/2026 05/25/2025 SDOH Screening 05/25/2026 05/25/2025 Tobacco Screening 05/25/2026 05/25/2025 Mammogram 01/06/2027 01/06/2025, 12/21/2023, 12/21/2023 Colorectal Cancer Screening 02/04/2027 FIT DNA/Cologuard 02/04/2027 02/05/2024 Pap Smear 03/21/2027 03/21/2024 Cervical Cancer Screening 03/21/2029 HPV/Cotest 03/21/2029 03/21/2024 DTaP/Tdap/Td Vaccines (2 - T d or Tdap) 01/06/2034 01/07/2024 RSV Patients and Patients Aged 60 years or older (1 - 1-dose 75+ series) 2048 HIV Screening Completed 01/07/2024 Hepatitis C Screening Completed 01/07/2024 HIB Vaccines Aged Out No longer eligi ble based on patient's age to complete this topic HPV Vaccines Aged Out No longer eligi ble based on patient's age to complete this topic Hepatitis A Vaccines Aged Out No long er eligible based on patient's age to complete this topic IPV Vaccines Aged Out No longer eligi ble based on patient's age to complete this topic Meningococcal B Vaccine Aged Out No l onger eligible based on patient's age to complete this topic Meningococcal Vaccine Aged Out No almita chris eligible based on patient's age to complete this topic RSV under 20 months Aged Out No longe r eligible based on patient's age to complete this topic Rotavirus Vaccines Aged Out No longer eligible based on patient's age to complete this topic Procedures Procedure Name Priority Date/Time Associated Diagnosis [...] reading in office without diagnosis of hypertension BI MAMMOGRAM SCREENING TOMOSYNTHESIS BILATERAL Routine 01/06/2025 10:40 AM EDT THINPREP IMAGING PAP AND HPV MRNA E6/E7 Routine 03/21/2024 3:07 PM EDT Pelvic pain LAB COLOGUARD COLON CANCER SCREEN Routine 02/05/2024 12:05 PM EDT Healthcare maintenance HEPATITIS PANEL, GENERAL Routine 01/07/2024 12:09 PM EDT Healthcare maintenance HIV 1/2 ANTIGEN/ANTIBODY, FOURTH GENERATION W/RFL Routine 01/07/2024 12:09 PM EDT Healthcare maintenance from Last 3 Months or Most Recently Relevant to Health Maintenance Results * XR Lumbar Spine Complete 4+ Views (05/25/2025 12:07 PM EDT) Anatomical Region Laterality Modality Spine, L-spine Radiographic Analia ging 05/25/2025 12:0 7 PM EDT Narrative 05/25/2025 12:56 PM EDT [place] [address] XRay Report Signed Patient: Servando Henriquez MR#: [id number] : 1975 Acct:[id number] Age/Sex: 49 / F ADM Date: 05/25/25 Loc: [facility] Attending Dr: Samantha GAMBLE Ordering Physician: Samantha Owusu Date of Service: 05/25/25 Procedure(s): XR lumbar spine 4V min Accession Number(s): [id number] cc: Samantha Owusu Reason for Exam: Acute on chronic sharp [...] IMPRESSION: Mild multilevel spondylosis. Electronically signed by: Keriwn Osborne MD 05/25/2025 12:53 PM EDT RP Dictated By: Kerwin Benitez MD Signed By: <Electronically signed by Kerwin Crowley MD in OV> 05/25/25 1253 DD/ 1207 TD/TT: 05/25/25 1210 Targeteer: Procedure Note Donotuseinterpreter, Image - 05/25/[address] [address] XRay Report Signed Patient: Servando Henriquez MR#: [id number] : 1975Acct:[id number] Age/Sex: 49 / FADM Date: 05/25/25 Loc: [facility] Attending Dr: Samantha PEGUEROP Ordering Physician: Samantha Owusu [facility] Date of Service: 05/25/25 Procedure(s): XR lumbar spine 4V min Accession Number(s): [id number] cc: Umer,[facility] Reason for Exam: Acute on chronic sharp [...] 05/25/25 1253 DD/ 1207 TD/TT: 05/25/25 1210 Targeteer: [facility] IMG XR PROCEDURES Edited Resu lt - Final * (ABNORMAL) Lipid Panel, Standard (05/25/2025 11:26 AM EDT) Triglycerides 92 <150 mg/dL [facility] Comment:Desirable Triglyceri de: less than 150 mg/dLBorderline High Triglyceride 150-199 mg/dLHigh Triglyceride: 200-499 mg/dLVery High Triglyceride: greater than or equal to 5OO mg/dL Cholesterol 237(H) <200 mg/dL [facility] Comment:Desirable Cholestero l: less than 200 mg/dLBorderline High Cholesterol: 200-239 mg/dLHigh Cholesterol: greater than 239 mg/dL LDL Cholesterol Calculated 166(H) <100 mg/dL [facility] Comment:Desirable LDL: less than 100 mg/dLNear Optimal/Above Optimal LDL: 110- 129 mg/dLBorderline High LDL: 130-159 mg/dLHigh LDL: 160-189 mg/dLVery High LDL: greater than or equal to 190 mg/dL HDL Cholesterol 53 >40 mg/dL [facility] Comment:Desirable HDL: great er than 40 mg/dL Note: This HDL assay may give artificially low results in patients with liver disease. Blood Venous blood specimen / Unknown 05/25/2025 11:26 AM EDT 05/25/2025 1:19 PM EDT [facility] [employer] LAB BLOOD ORDERABLES Final Re sult [facility] [address] [place] [phone] * (ABNORMAL) Comprehensive Metabolic Panel (05/25/2025 11:26 AM EDT) Sodium 140 135 - 145 mmol/L [facility] Potassium 4.1 3.3 - 5.1 mmol/L [facility] Chloride 110(H) 96 - 108 mmol/L [facility] Carbon Dioxide 26 22 - 29 mmol/L [facility] Anion Gap 8(L) 12 - 20 [facility] Urea Nitrogen (BUN) 14 9 - 16 mg/dL [facility] Creatinine, Serum 0.59 0.5 - 1.4 mg/dL [facility] Estimated Glomerular Filt Rate >60 [facility] Comment:Chronic Kidney Disea se: Estimated GFR < 60 mL/min/[id number] Kidney Disease: Estimated GFR < 15 mL/min/1.73m2 Glucose 101 60 - 115 mg/dL [facility] Calcium 9.2 8.4 - 10.2 mg/dL [facility] Bilirubin, Total 0.4 0.0 - 1.0 mg/dL [facility] Aspartate Amino Transferase 23 5 - 31 U/L [facility] Alanine Aminotransferase 25 0 - 31 U/L [facility] Total Protein 7.8 6.5 - 8.0 g/dL [facility] Albumin Level 4.6 3.5 - 5.0 g/dL [facility] Alkaline Phosphatase 64 39 - 117 U/L [facility] Blood Venous blood specimen / Unknown 05/25/2025 11:26 AM EDT 05/25/2025 1:19 PM EDT [facility] BLOOD ORDERABLES Final Re sult [facility] [address] [place] [phone] * Albumin, Random Urine W/Creatinine (05/25/2025 11:25 AM EDT) Creatinine, Urine 89.24 mg/dL [facility] Microalbumin Urine 8.0 mg/L [facility] Microalbum Creatinine Ratio Ur 8.9 <30 ug/mg cr [facility] Comment:Albumin/Creatinine R atio Reference Ranges: Normal: < 30 ug/mg creatinine Microalbuminuria: 30 - 300 ug/mg creatinineClinical Albuminuria: > 300 ug/mg creatinine Urine 05/25/2025 11:2 5 AM EDT 05/25/2025 1:00 PM EDT us Samantha Umer [employer] LAB URINE ORDERABLES Final Re sult [facility] [address] [place] [address] [phone] * BI Mammogram Screening Tomosynthesis Bilateral (01/06/2025 10:40 AM EDT) Anatomical Region Laterality Modality Breast Bilateral Mammography 01/06/2025 10:4 0 AM EDT Narrative 01/13/2025 4:01 PM EDT [facility] [address] [place], [place] [address] Mammography Report Signed Patient: Servando Henriquez MR#: [id number] : 1975 Acct:[id number] Age/Sex: 49 / F ADM Date: 01/06/25 Loc: [facility].MAMMO Attending Dr: Samantha Owusu [employer] Ordering Physician: Samantha Owusu Results: 1Nega tive Date of Service: 01/06/25 Follow Up: 1 Year From Orig ina Mammogram Procedure(s): MM tomosynthesis screening BI Accession Number(s): [id number] cc: Samantha Owusu [employer] EXAMINATION: MM SCREENING DIGITAL BREAST TOMOSYNTHESIS, BILATERAL CLINICAL INFORMATION: Screening. Asymptomatic. COMPARISON: Mammography: Comparison is made with available priors TECHNIQUE: Digital breast mammography with tomosynthesis is performed in both the craniocaudal and mediolateral oblique views along with computer-aided detection (CAD). FINDINGS: The breasts are heterogeneously dense, which may obscure small masses (ACR BI-RADS breast composition Category c). There are no significant masses, abnormal calcifications, or other abnormalities. MM/MM tomosynthesis screening BI IMPRESSION: No mammographic evidence of malignancy. ASSESSMENT: BI-RADS BI-RADS 1 - Negative RECOMMENDATION: Routine annual mammography screening. 1 year F/U This examination should not preclude the clinical evaluation of a suspicious palpable abnormality. This patient's information was entered into a reminder system with a target due date for their next mammogram. Electronically signed by: Christelle Esquivel DO 01/13/2025 03:58 PM EDT Dictated By: Christelle Esquivel DO Signed By: <Electronically signed by Christelle Esquivel DO in OV> 01/13/25 1558 DD/ 1040 TD/TT: 01/06/25 1100 Targeteer: Procedure Note Donoteveretteinterpreter, Image - 01/13/20[facility] [address] [place] [address] Mammography Report Signed Patient: Servando Henriquez MR#: [id number] : 1975Acct:[id number] Age/Sex: 49 / FADM Date: 01/06/25 Loc: [facility].MAMMO Attending Dr: Samantha Owusu [employer] Ordering Physician: Samantha Owusu FNPResults: 1Nega tive Date of Service: 01/06/25Follow Up: 1 Year From Orig inal Mammogram Procedure(s): MM tomosynthesis screening BI Accession Number(s): [id number] cc: Samantha Owusu [employer] EXAMINATION: MM SCREENING DIGITAL BREAST TOMOSYNTHESIS, BILATERAL CLINICAL INFORMATION: Screening. Asymptomatic. COMPARISON: Mammography: Comparison is made with available priors TECHNIQUE: Digital breast mammography with tomosynthesis is performed in both the craniocaudal and mediolateral oblique views along with computer-aided detection (CAD). FINDINGS: The breasts are heterogeneously dense, which may obscure small masses (ACR BI-RADS breast composition Category c). There are no significant masses, abnormal calcifications, or other abnormalities. MM/MM tomosynthesis screening BI IMPRESSION: No mammographic evidence of malignancy. ASSESSMENT: BI-RADS BI-RADS 1 - Negative RECOMMENDATION: Routine annual mammography screening. 1 year F/U This examination should not preclude the clinical evaluation of a suspicious palpable abnormality. This patient's information was entered into a reminder system with a target due date for their next mammogram. Electronically signed by: Christelle Esquivel DO 01/13/2025 03:58 PM EDT Dictated By: Christelle Esquivel DO Signed By: <Electronically signed by Christelle Esquivel DO in OV> 01/13/25 1558 DD/ 1040 TD/TT: 01/06/25 1100 Targeteer: [facility] [employer] IMG BI PROCEDURES Final Resul t * ThinPrep Imaging Pap and HPV mRNA E6/E7 (03/21/2024 3:07 PM EDT) HPV nRNA E6/E7 Not Detected Not Detected [facility] Comment:Methodology: Transcr iption-Mediated AmplificationThis assay detects E6/E7 viral messenger RNA (mRNA) from 14high-risk HPV types (16,18,31,33,35,39,45,51,52,56,58,59,66,68).Cervical sources are required for HPV testing.If a vaginal source from a patient who has had atotal hysterectomy with removal of cervix wassubmitted, please contact the testing laboratoryfor alternative testing options.For additional information, please refer tohttp://education.[employer]/faq/SYV529c6(This link if provided for information/educational purposes only.)THIS TEST WAS PERFORMED AT:[employer] [address] [phone] [place] MD SOURCE: SEE NOTE [facility] Comment:None given Report Status: [facility] Clinical Information: SEE NOTE [facility] Comment:None given LMP: SEE NOTE [facility] Comment:NONE GIVEN Prev. PAP: SEE NOTE [facility] Comment:NONE GIVEN Prev. BX: SEE NOTE [facility] Comment:NONE GIVEN Statement Of Adequacy: SEE NOTE [facility] Comment:Satisfactory for yahir luation.Endocervical/transformation zone componentpresent. General Categorization: [facility] Interpretation/Result: SEE NOTE [facility] Comment:Cytology Results: Ne gative for intraepitheliallesion or malignancy. Cytology Comment SEE NOTE [facility] Comment:This Pap test has be en evaluated with computerassisted technology. Cutter Operator: SEE NOTE [facility] Comment:DMM, CT(ASCP)CT scre ening location: [place] [address] Review Cutter Operator: [facility] Pathologist [facility] PAP Infection [facility] See Note SEE NOTE [facility] Comment:EXPLANATORY NOTE:The Pap is a screening test for cervical cancer. It isnot a diagnostic test and is subject to false negativeand false positive results. It is most reliable when asatisfactory sample, regularly obtained, is submittedwith relevant clinical findings and history, and whenthe Pap result is evaluated along with historic andcurrent clinical information. 03/21/2024 3:07 PM EDT 03/21/2024 5:15 PM EDT Narrative [facility] - 03/26/2024 12:17 PM EDT SEE SCANNED RESULTS IN EMR [facility] PATHOLOGY ORDERABLES Ariana ferreira Result [facility] [address] [place] [phone] * Cologuard?? colon cancer screening (02/05/2024 12:05 PM EDT) Cologuard Result Negative Negative 02/09/20 5:14 AM EDT [facility] (CLIA #:[id number]) Comment: NEGATIVE TEST RESULT. A negative Cologuard result indicates a low likelihood that a colorectal cancer (CRC) or advanced adenoma (adenomatous polyps with more advanced pre-malignant features) is present. The chance that a person with a negative Cologuard test has a colorectal cancer is less than 1 in 1500 (negative predictive value >99.9%) or has an advanced adenoma is less than 5.3% (negative predictive value 94.7%). These data are based on a prospective cross-sectional study of 10,000 individuals at average risk for colorectal cancer who were screened with both Cologuard and colonoscopy. (Guanako Guevara al, N Engl J Med 2014;370(14):9249-6163) The normal value (reference range) for this assay is negative. COLOGUARD RE-SCREENING RECOMMENDATION: Periodic colorectal cancer screening is an important part of preventive healthcare for asymptomatic individuals at average risk for colorectal cancer. Following a negative Cologuard result, the [place] [employer] Society and U.S. Multi-Society Task Force screening guidelines recommend a Cologuard re-screening interval of 3 years. References: [place] [employer] Guideline for Colorectal Cancer Screening: https://www.cancer.org/cancer/dkvnj-zpnusk-unrcee/pnmxupsbi-jzqkqlwbi-rgysjyd/ac s-rec ommendations.html.; Cameron DK, Cristina CR, Skyler LagunasK, Colorectal Cancer Screening: Recommendations for Physicians and Patients from the U.S. Multi-Society Task Force on Colorectal Cancer Screening , Am J Gastroenterology 2017; 112:6601-1293. TEST DESCRIPTION: Composite algorithmic analysis of stool DNA-biomarkers with hemoglobin immunoassay. Quantitative values of individual biomarkers are not reportable and are not associated with individual biomarker result reference ranges. Cologuard is intended for colorectal cancer screening of adults of either sex, 45 years or older, who are at average-risk for colorectal cancer (CRC). Cologuard has been approved for use by the U.S. FDA. The performance of Cologuard was established in a cross sectional study of average-risk adults aged 50-84. Cologuard performance in patients ages 45 to 49 years was estimated by sub-group analysis of near-age groups. Colonoscopies performed for a positive result may find as the most clinically significant lesion: colorectal cancer [4.0%], advanced adenoma (including sessile serrated polyps greater than or equal to 1cm diameter) [20%] or non- advanced adenoma [31%]; or no colorectal neoplasia [45%]. These estimates are derived from a prospective cross-sectional screening study of 10,000 individuals at average risk for colorectal cancer who were screened with both Cologuard and colonoscopy. (Guanako Guevara al, N Engl J Med 2014;370(14):5061-1981.) Cologuard may produce a false negative or false positive result (no colorectal cancer or precancerous polyp present at colonoscopy follow up). A negative Cologuard test result does not guarantee the absence of CRC or advanced adenoma (pre-cancer). The current Cologuard screening interval is every 3 years. ([place] [employer] Society and U.S. Multi-Society Task Force). Cologuard performance data in a 10,000 patient pivotal study using colonoscopy as the reference method can be accessed at the following location: www.[employer].com/results. Additional description of the Cologuard test process, warnings and precautions can be found at www.colLeonar3Dord.com. Stool specimen (specimen) 02/05/2024 12:05 PM EDT 02/06/2024 10:48 AM EDT [facility] MOLECULAR DIAGNOSTICS ORD ERABLES Final Result [facility] (CLIA #:[id number]) [address] [place] [address], * Hepatitis A,B,C Profile (01/07/2024 12:09 PM EDT) Hepatitis A IgM Nonreactive Nonreactive [facility] Comment:IgM antibodies to YIN V not detected; does not exclude earlyacute or recovered HAV infection. ~Hepatitis B Surface Antibody NONREACTIVE Nonreactive [facility] Comment:Nonreactive: < 8.00 mIU/mL Hepatitis B Core Antibody Nonreactive Nonreactive [facility] Hepatitis C Antibody Nonreactive Nonreactive [facility] Comment:Antibodies to HCV no t detected; does not exclude early acuteHCV infection. Hepatitis B Surface Ag Negative Negative [facility] Blood Venous blood specimen / Unknown 01/07/2024 12:09 PM EDT 01/07/2024 1:08 PM EDT [facility] BLOOD ORDERABLES Final Re sult [facility] [address] [place] [phone] [phone] * HIV-1/2 Antigen and Antibodies, Fourth Generation, with Reflexes (01/07/2024 12:09 PM EDT) HIV AB/AG Nonreactive Nonreactive [facility] Comment:HIV-1 p24 Ag and/or HIV-1/HIV-2 Ab not detected.A test result that is nonreactive does not exclude thepossibility of exposure to or infection with HIV-1 and/orHIV-2. Nonreactive results in this assay for individualswith prior exposure to HIV-1 and/or HIV-2 may be due toantigen and antibody levels that are below the limit ofdetection of this assay.The [employer] HIV Ag/Ab Combo assay result andsupplemental assay results should be interpreted inconjunction with the patient's clinical presentation,history and other laboratory results. If the results areinconsistent with clinical evidence, additional testing issuggested to confirm the result. Blood Venous blood specimen / Unknown 01/07/2024 12:09 PM EDT 01/07/2024 1:08 PM EDT [facility] BLOOD ORDERABLES Final Re sult [facility] [address] [place] [phone] from Last 3 Months or Most Recently Relevant to Health Maintenance Insurance [facility] F[facility] Care Teams Energy Scheduler Relationship Specialty Start Date End Date Samantha Owusu FNP [address] [place] [phone] PCP - General Family Medicine 12/14/23
--- OUTSIDE RECORDS SUMMARY | 2025-05-25 14:29 | XMS_ITS | Encounter Summary ---
Author Organization [employer] Address [address] [facility] [address] [facility] [place] [address] Care Team Providers Care Game Author Name Role Phone Samantha Owusu [facility] Primary Care Provider [phone] Encounter Details Date Type Department Care Team (Latest Contact Info) Description 05/25/2025 Travel Social History Tobacco Use Types Packs/Day Years [...] is your housing situation today? I have tarikajay high 05/25/[address] you [...] energy Not at all 05/25/2025 11:16 AM GEORGET Vy Valentin [place] Poor appetite or overeating Not at all 05/25/2025 11 :16 AM GEORGET Vy Valentin [place] Feeling bad about yourself - or that you are a failure or have let yourself or your family down Not at all 05/25/2025 11:16 AM GEORGET Vy Valentin [place] Trouble concentrating on things, such as reading the newspaper or watching television Not at all 05/25/2025 11:16 AM GEORGET Vy Valentin [place] Moving or speaking so slowly that other people could have noticed? Or the opposite - being so fidgety or restless that you have been moving around a lot more than usual. Not at all 05/25/2025 11:16 AM EDT Vy Poe MA Thoughts that you would be better off or hurting yourself in some way Not at all 05/25/2025 11:16 AM EDT Vy Valentin MA Patient Health Questionnaire-9 Score 0 05/25/2025 11:16 AM EDT Vy Reilly [place] * Over the last 2 weeks, how often have you been bothered by any of the following problems? Question Answer Date of Assessment Author Feeling nervous, anxious, or on edge 0 05/25/2025 11:16 AM EDT Vy Valentin MA Not being able to stop or control worrying 0 05/25/2025 11:16 AM EDT Vy Valentin MA Worrying too much about different things 0 05/25/2025 11:16 AM EDT Vy Valentin MA Trouble relaxing 0 05/25/2025 11:16 AM EDT Vy Valentin MA Being so restless that it is hard to sit still 0 05/25/2025 11:16 AM EDT Vy Valentin MA Becoming easily annoyed or irritable 0 [...] Description 06/01/2025 11:30 AM EST Clinical Support [facility] [address] [place], [place] [phone] documented as of this encounter Visit Diagnoses Not on filedocumented in this encounter Additional Health Concerns Assessment Noted Time PHQ-9 Depression Total Score: 0 05/25/20 11:16 AM EDT documented as of this encounter Care Teams Game Author Relationship Specialty Start Date End Date Samantha Owusu FNP [address] [place] [id number] PCP - General Family Medicine 12/14/23 documented as of this encounter
--- OUTSIDE RECORDS SUMMARY | 2025-05-25 14:29 | XMS_ITS | Encounter Summary ---
Author Organization [employer] Address [address] [facility] [address] [place] [address] Care Team Providers Care In Shop Service Technician Name Role Phone [facility] Primary Care Provider [phone] Reason for Visit * Reason Onset Date Comments chart prep 05/22/2025 Encounter Details Date Type Department Care Team ([facility] st Contact Info) Description 05/22/2025 Telephone [facility] [address] [place], [place] [id number] [facility] [address] [place] [address] chart prep Social History Tobacco Use Types Packs/Day Years Used Date Smoking Tobacco: Never Passive Smoke Exposure: Never Smokeless Tobacco: Never Alcohol Use Standard Drinks/Week Comments Never 0 (1 standard drink = 0.6 oz pur e alcohol) Depression Answer Date Recorded Patient Health Questionnaire-9 Score 0 06/23/2024 Patient Health Questionnaire-9 Score 0 06/23/2024 Last PHQ-9: Questionnaire Data Not on file 1 08/23/2023 Housing Stability Answer Date Recorded What is your housing situation today? I have tarik high 03/21/[address] you li ve. Do you have problems with any of the following? None of the above 03/21/2024 Food Insecurity Answer Date Recorded Within the past 12 months, y ou worried that your food would run out before you got money to buy more: Never True 03/21/2024 Within the past 12 months,th e food you bought just didn't last and you didn't have enough money to get more: Never True Transportation Answer Date Recorded In the past 12 months, has l ack of transportation kept you from medical appts, meetings, work or from getting things needed for daily living? No 03/21/2024 Utilities Answer Date Recorded In the past 12 months, has t he electric, gas, oil or water company threatened to shut off services in your home? No 03/21/2024 Depression Answer Date Recorded Patient Health Questionnaire-2 Score 0 06/23/2024 Internet Access Answer Date Recorded Internet Access Q1 Yes 03/28/2024 Internet Access Q2 Not on file 03/28/2024 Comments Unknown Sex and Gender Information Value Date Recorded Sex Assigned at Female 05/29/2022 10:39 AM EDT Legal Sex Female 10:39 AM EDT Gender Identity Female 05/29/2022 10:39 AM EDT Sexual Orientation Don't know 05/29/2022 10 :39 AM EDT documented as of this encounter Miscellaneous Notes * Telephone Encounter - Vy Valentin MA - 05/22/2025 1:25 PM EDT Chart Prep Labs: not applicable Images: done Referrals: complete Vaccines due: Covid, Flu, PCV20, Hep B, and Zoster Screenings: not applicable Overdue care gaps: SBIRT, SDOH, PHQ-9, CECELIA-7, and Disability screen documented in this encounter Plan of Treatment Upcoming Encounters Date Type Department Care Team (Late st Contact Info) Description 06/01/2025 11:30 AM EST Clinical Support [facility] [address] [place] [address] documented as of this encounter Visit Diagnoses Not on filedocumented in this encounter Additional Health Concerns Assessment Noted Time PHQ-9 Depression Total Score: 0 06/23/20 12:58 PM EST documented as of this encounter Care Teams In Shop Service Technician Relationship Specialty Start Date End Date Samantha Owusu FNP [address] [place] [address] PCP - General Family Medicine 12/14/23 documented as of this encounter
--- OUTSIDE RECORDS SUMMARY | 2025-05-25 14:29 | XMS_ITS | Patient Health Record ---
Author Organization [facility] Address [address] [place] [address] Care Team Providers Care Vascular Technician Name Role Phone NO, PCP Primary Care Provider Allergies No Known Allergies Reason For Referral No Information Plan Of Treatment No Information Insurance Providers Payer Name Payer Address Payer Phone Subscriber Number Group Number Insured Name Patient Relationship to Insured Coverage Start Date Coverage End Date [place] [employer] [address] [place], [place] [id number] [phone] [id number] Servando Torres Self - patient is the insured 9 [place] [employer] [facility] [address] [place] [address] [id number] Servando Torres Self - patient is the insured 9 [facility] [employer] [facility] [address] [place] [address] [id number] Servando Torres Self - patient is the insured 9 Medical (General) History Medical History History ICD Code Healthy
== END 2025-05-25 11:20 | disposition home or self-care (01) ==
LOC: HO.HHCL 11:19
PROVIDERS: PCP Registered Nurse; Visit Provider Registered Nurse
DX: M54.41 Lumbago with sciatica, right side (principal); G89.29 Other chronic pain; R03.0 Elevated blood-pressure reading, without diagnosis of hypertension
CPT/HCPCS: 36415; 72110; 80053; 80061; 82043; 82570

== ENCOUNTER → 2025-05-25 11:42 | Outpatient (BNV) | payer SELFPAY | PROVIDERS: PCP Registered Nurse; Visit Provider Radiology Diagnostic Radiology | DX: N85.00 Endometrial hyperplasia, unspecified (principal); N95.0 Postmenopausal bleeding; M47.816 Spondylosis without myelopathy or radiculopathy, lumbar region | CPT/HCPCS: 72110; 76830; 76856 ==

== ENCOUNTER 2025-05-25 14:53 | Outpatient (REF) | payer MEDICAID, OTHER, SELFPAY ==
--- NOTE | ~2025-05-25 | US_ITS ---
EXAMINATION: US PELVIS CLINICAL INFORMATION: Postmenopausal bleeding COMPARISON: January 10, 2024 TECHNIQUE: Ultrasound of the pelvis is performed using both transabdominal and transvaginal transducers along with Doppler. Transvaginal imaging is performed due to inadequate visualization transabdominally. FINDINGS: Uterus: The uterus is anteverted and measures 8 x 3 x 4 cm. The double wall endometrial thickness is 8 mm. It appears slightly heterogeneous with fundus. The uterus is smooth in contour and has normal myometrial echogenicity. No visible fibroid. Adnexa: Both ovaries are visualized. There is normal color flow to the adnexa. There is no ovarian torsion. There is no pelvic ascites or fluid collection. Right ovary measures 2.0 x 1.2 x 1.3 cm. Left ovary measures 2.3 x 1.0 x 1.5 cm. US/US pelvic and transvaginal IMPRESSION: Endometrium is 8 mm thick. For a postmenopausal patient, this raises question of endometrial hyperplasia, polyp, or less likely carcinoma. Electronically signed by: Jadon Hancock MD 05/25/2025 03:57 PM EDT
== END 2025-05-25 14:54 | disposition home or self-care (01) ==
LOC: HO.US 14:53
PROVIDERS: PCP Registered Nurse; Visit Provider Registered Nurse
DX: N95.0 Postmenopausal bleeding (principal)
CPT/HCPCS: 76830; 76856